=== PATIENT | female | born 1965 | race African-American/Black ===

== ENCOUNTER 2022-11-05 17:02 | Emergency (ER) | payer OTHER ==
[~2022-11-05] VITALS: Ht 170.2 cm; Wt 77.7 kg
[2022-11-05 18:17] LABS: BASOPHILS % 0.4 % (0.0-2.0); EOSINOPHILS % 3.8 % (0.0-5.0); HEMATOCRIT. 37.3 % (36.0-48.0); HEMOGLOBIN. 12.5 g/dL (12.0-16.0); LYMPHOCYTES % 31.9 % (20.0-50.0); MEAN CORPUSCULAR VOLUME 80.8 fL (81.0-99.0); MEAN PLATELET VOLUME 7.5 fl (7.4-10.4); MONOCYTES % 8.1 % (2.0-8.0); NEUTROPHILS % 55.8 % (40.0-76.0); PLATELET 419 x1000/uL (130-400); RED BLOOD CELL COUNT 4.62 mill/uL (4.2-5.4); RED CELL DISTRIBUTION WIDTH 14.6 % (11.6-14.6)
[2022-11-05 18:24] LABS: CHLORIDE 107 mEq/L (98-107)
[2022-11-05] MEDS ORDERED: ONDANSETRON HCL 4MG/2ML INJ IV STA (18:47)
[2022-11-05] MEDS ORDERED: FAMOTIDINE 20MG/2ML VIAL IV STA (18:47)
[2022-11-05] MEDS ORDERED: SODIUM CHLORIDE 0.9% 1,000 ML IV ONE (19:00)
[2022-11-05 22:16] VITALS: BP 107/77
== END 2022-11-05 22:17 | disposition home or self-care (01) ==
LOC: ER 17:02
DX: R00.0 Tachycardia, unspecified (principal); R11.2 Nausea with vomiting, unspecified
CPT/HCPCS: 36415; 74176; 80053; 83690; 85025; 93005; 96374; 96375; 99285; J2405; J3490; J7030; Z7610

== ENCOUNTER 2023-05-28 18:46 | Emergency (ER) | payer OTHER ==
[~2023-05-28] VITALS: Ht 172.7 cm; Wt 77.0 kg
[2023-05-28 18:55] VITALS: TEMP 98.6; O2SAT 98
[2023-05-28] MEDS ORDERED: IBUPROFEN 600MG TABLET PO ONE (19:15)
[2023-05-28 20:47] VITALS: BP 140/105; PULSE 101; RESP 18
[2023-05-28] MEDS ORDERED: NAPR-681 MT (21:10)
== END 2023-05-28 23:44 | disposition home or self-care (01) ==
LOC: ER 18:46
DX: S09.90XA Unspecified injury of head, initial encounter (principal); S16.1XXA Strain of muscle, fascia and tendon at neck level, initial encounter; M54.50 Low back pain, unspecified; V89.2XXA Person injured in unspecified motor-vehicle accident, traffic, initial encounter; Y93.89 Activity, other specified; Y92.89 Other specified places as the place of occurrence of the external cause; Y99.8 Other external cause status
CPT/HCPCS: 72131; 99284